=== PATIENT | female | born 1995 | race Caucasian/White ===

== ENCOUNTER 2018-03-23 18:42 | Emergency (ER) | payer OTHER ==
[~2018-03-23] VITALS: Ht 170.2 cm; Wt 108.0 kg
[2018-03-23] MEDS ORDERED: MTF500T (18:57)
[2018-03-23] MEDS ORDERED: MAGN400C (18:57)
[2018-03-23] MEDS ORDERED: LACTATED RINGERS 1,000 ML IV ONE (19:14)
[2018-03-23] MEDS ORDERED: KETOROLAC 30 MG/ML VIAL IVP ONE (19:15)
[2018-03-23] MEDS ORDERED: NS IV 1000 ML 1,000 ML ONE (19:16)
[2018-03-23 19:20] LABS: BASOPHILS # (AUTO) 0.1 10^3/uL (0.0-0.1); BASOPHILS % (AUTO) 1 % (0-10); EOSINOPHILS # (AUTO) 0.5 10^3/uL (0.0-0.3); EOSINOPHILS % (AUTO) 3 % (0-10); HEMATOCRIT 42 % (35-52); HEMOGLOBIN 14.4 G/DL (11.5-16.0); LYMPHOCYTES % (AUTO) 26 % (12-44); MEAN CORPUSCULAR HEMOGLOBIN 27 PG (25-34); MEAN CORPUSCULAR HGB CONC 35 G/DL (32-36); MEAN CORPUSCULAR VOLUME 78 FL (80-99); MEAN PLATELET VOLUME 10.6 FL (7.4-10.4); MONOCYTES # (AUTO) 0.9 X 10^3 (0.0-1.0); MONOCYTES % (AUTO) 6 % (0-12); NEUTROPHILS # (AUTO) 10.3 X 10^3 (1.8-7.8); NEUTROPHILS % (AUTO) 65 % (42-75); PLATELET COUNT 320 10^3/uL (130-400); RED BLOOD COUNT 5.37 10^6/uL (4.35-5.85); RED CELL DISTRIBUTION WIDTH 13.8 % (10.0-14.5); WHITE BLOOD COUNT 15.9 10^3/uL (4.3-11.0)
[2018-03-23 19:23] LABS: BILIRUBIN,URINE NEGATIVE (NEGATIVE); CLARITY,URINE VERY CLOUDY; COLOR,URINE AMBER; GLUCOSE, URINE (UA) NEGATIVE (NEGATIVE); KETONES,URINE NEGATIVE (NEGATIVE); LEUKOCYTE ESTERASE ,URINE 2+ (NEGATIVE); NITRITE,URINE NEGATIVE (NEGATIVE); PH,URINE 5 (5-9); PROTEIN,URINE 3+ (NEGATIVE); UROBILINOGEN,URINE NORMAL (NORMAL)
[2018-03-23 19:24] LABS: HCG,QUALITATIVE URINE NEGATIVE (NEGATIVE)
--- NOTE | 2018-03-23 19:26 | ED Abdominal Pain ---
General Chief Complaint: Abdominal/GI Problems Stated Complaint: LOWER ABD PAIN Nursing Triage Note: patient c/o R sided abdomen pain starting today with nausea. Sepsis Screen: No Definite Risk Source of Information: Patient Exam Limitations: No Limitations History of Present Illness Date Seen by Provider: Mar 23, 2018 Time Seen by Provider: 19:14 Initial Comments The patient resents to the ER by private conveyance with a chief complaint that for couple days now she's had progressively worsening pain in her right side. She says the pain presented similar to when she had a kidney stone several months ago. When she got this which she had. She also had a history of a few months after her kidney stone a bad pyelonephritis which presented similar to this. Pains on her right side and her right upper quadrant and right lower quadrant abdomen but the ride over was very bumpy and very painful for her and her mother is concerned she might have appendicitis since all of her siblings about appendicitis. Patient says she's felt some chills like a fever but never measured a fever. She took ibuprofen approximately an hour and a half prior to arrival 600 mg. She is about a week away from her. But she has Nahomi IUD. She takes metformin for prediabetes and PCO S. She's having some nausea but no vomiting yet. She's had no diarrhea or constipation. She has no pain when she urinates nor hematuria. No discharge. Allergies and Home Medications Allergies Coded Allergies: No Known Drug Allergies (Unverified , 03/23/18) Patient Home Medication List Home Medication List Reviewed: Yes Review of Systems Constitutional: chills; No diaphoresis, No fever; malaise EENTM: No Blurred Vision, No Double Vision Respiratory: Denies Cough, Denies Shortness of Air Cardiovascular: Denies Chest Pain, Denies Lightheadedness Gastrointestinal: Abdomen Distended, Abdominal Pain; Denies Constipated, Denies Diarrhea; Nausea; Denies Poor Fluid Intake, Denies Vomiting Genitourinary: Denies Burning, Denies Discharge Musculoskeletal: back pain (r cva); No joint pain Skin: No pruritus, No rash Psychiatric/Neurological: Denies Headache, Denies Numbness Past Iycpzxa-Agucej-Qjlhsv Hx Patient Social History Alcohol Use: Occasionally Uses Recreational Drug Use: No Smoking Status: Never a Smoker Recent Foreign Travel: No Contact w/Someone Who Travel: No Recent Infectious Disease Expo: No Recent Hopitalizations: No Past Medical History Surgeries: No Respiratory: No Cardiac: No Female Reproductive Disorders: Polycystic Ovarian Dis Genitourinary: Yes Kidney Stones, UTI-Chronic Gastrointestinal: No Musculoskeletal: No Endocrine: Yes Diabetes, Non-Insulin dep HEENT: No Cancer: No Psychosocial: No Blood Disorders: No Physical Exam Vital Signs Vital Signs - First Documented 03/23/18 18:52 Temp 98.2 Pulse 94 Resp 18 B/P (MAP) 144/106 (119) Pulse Ox 98 Capillary Refill : Less Than 3 Seconds General Appearance: WD/WN, mild distress HEENT: PERRL/EOMI, pharynx normal Respiratory: chest non-tender, lungs clear, normal breath sounds, no respiratory distress, no accessory muscle use Cardiovascular: normal peripheral pulses, regular rate, rhythm, no edema Peripheral Pulses: 2+ Radial Pulses (R), 2+ Radial Pulses (L) Gastrointestinal: normal bowel sounds, no organomegaly, guarding, rebound, tenderness (right upper quadrant and right lower quadrant with McBurney's point tenderness but negative for Olguin sign.), other (positive for Rovsing sign but not psoas sign. Discomfort in her abdomen on jumping up.) Extremities: normal range of motion, normal inspection, no pedal edema, no calf tenderness, normal capillary refill Back: normal inspection, CVA tenderness (R); No CVA tenderness (L) Neurologic/Psychiatric: alert, oriented x 3 Skin: normal color, warm/dry Progress/Results/Core Measures Results/Orders Lab Results Laboratory Tests Test 03/23/18 19:00 03/23/18 19:05 Range/Units Urine Color MARIE H Urine Clarity VERY CLOUDY H Urine pH 5 5-9 Urine Specific Mckenzie 1.025 H 1.016-1.022 Urine Protein 3+ H NEGATIVE Urine Glucose (UA) NEGATIVE NEGATIVE Urine Ketones NEGATIVE NEGATIVE Urine Nitrite NEGATIVE NEGATIVE Urine Bilirubin NEGATIVE NEGATIVE Urine Urobilinogen NORMAL NORMAL MG/DL Urine Leukocyte Esterase 2+ H NEGATIVE Urine RBC (Auto) 5+ H NEGATIVE Urine RBC TNTC H /HPF Urine WBC 10-25 H /HPF Urine Squamous Epithelial Cells 5-10 /HPF Urine Crystals NONE /LPF Urine Bacteria LARGE H /HPF Urine Casts NONE /LPF Urine Mucus NEGATIVE /LPF Urine Culture Indicated YES Urine Test NEGATIVE NEGATIVE Urine Opiates Screen NEGATIVE NEGATIVE Urine Oxycodone Screen NEGATIVE NEGATIVE Urine Methadone Screen NEGATIVE NEGATIVE Urine Propoxyphene Screen NEGATIVE NEGATIVE Urine Barbiturates Screen NEGATIVE NEGATIVE Ur Tricyclic Antidepressants Screen NEGATIVE NEGATIVE Urine Phencyclidine Screen NEGATIVE NEGATIVE Urine Amphetamines Screen NEGATIVE NEGATIVE Urine Methamphetamines Screen NEGATIVE NEGATIVE Urine Benzodiazepines Screen NEGATIVE NEGATIVE Urine Cocaine Screen NEGATIVE NEGATIVE Urine Cannabinoids Screen NEGATIVE NEGATIVE White Blood Count 15.9 H 4.3-11.0 10^3/uL Red Blood Count 5.37 4.35-5.85 10^6/uL Hemoglobin 14.4 11.5-16.0 G/DL Hematocrit 42 35-52 % Mean Corpuscular Volume 78 L 80-99 FL Mean Corpuscular Hemoglobin 27 25-34 PG Mean Corpuscular Hemoglobin Concent 35 32-36 G/DL Red Cell Distribution Width 13.8 10.0-14.5 % Platelet Count 320 130-400 10^3/uL Mean Platelet Volume 10.6 H 7.4-10.4 FL Neutrophils (%) (Auto) 65 42-75 % Lymphocytes (%) (Auto) 26 12-44 % Monocytes (%) (Auto) 6 0-12 % Eosinophils (%) (Auto) 3 0-10 % Basophils (%) (Auto) 1 0-10 % Neutrophils # (Auto) 10.3 H 1.8-7.8 X 10^3 Lymphocytes # (Auto) 4.0 1.0-4.0 X 10^3 Monocytes # (Auto) 0.9 0.0-1.0 X 10^3 Eosinophils # (Auto) 0.5 H 0.0-0.3 10^3/uL Basophils # (Auto) 0.1 0.0-0.1 10^3/uL Neutrophils % (Manual) 60 % Lymphocytes % (Manual) 37 % Monocytes % (Manual) 1 % Eosinophils % (Manual) 2 % Basophils % (Manual) 0 % Band Neutrophils 0 % Microcytosis SLIGHT Sodium Level 138 135-145 MMOL/L Potassium Level 4.0 3.6-5.0 MMOL/L Chloride Level 103 98-107 MMOL/L Carbon Dioxide Level 20 L 21-32 MMOL/L Anion Gap 15 H 5-14 MMOL/L Blood Urea Nitrogen 6 L 7-18 MG/DL Creatinine 0.73 0.60-1.30 MG/DL Estimat Glomerular Filtration Rate > 60 BUN/Creatinine Ratio 8 Glucose Level 116 H 70-105 MG/DL Calcium Level 9.7 8.5-10.1 MG/DL Total Bilirubin 0.3 0.1-1.0 MG/DL Aspartate Amino Transf (AST/SGOT) 22 5-34 U/L Alanine Aminotransferase (ALT/SGPT) 16 0-55 U/L Alkaline Phosphatase 84 40-136 U/L Total Protein 8.2 6.4-8.2 GM/DL Albumin 4.6 H 3.2-4.5 GM/DL My Orders Orders - BOBY COE Cbc With Automated Diff (03/23/18 19:14) Comprehensive Metabolic Panel (03/23/18 19:14) Drug Screen Stat (Urine) (03/23/18 19:14) Hcg,Qualitative Urine (03/23/18:14) Ua Culture If Indicated (03/23/18 19:14) Ketorolac Injection (Toradol Injection) (03/23/18 19:15) Saline Lock/Iv-Start (03/23/18 19:14) Lactated Ringers (Lr 1000 Ml Iv Solution (03/23/18 19:14) Ns Iv 1000 Ml (Sodium Chloride 0.9%) (03/23/18 19:16) Manual Differential (03/23/18 19:05) Ct Abdomen/Pelvis W Wo (03/23/18 19:23) Iohexol Injection (Omnipaque 350 Mg/Ml 1 (03/23/18 19:30) Sodium Chloride Flush (Catheter Flush Sy (03/23/18 19:30) Ns (Ivpb) (Sodium Chloride 0.9%) (03/23/18 19:30) Pharmacy Communication (Pharmacy Communi (03/23/18 19:25) Ondansetron Injection (Zofran Injectio (03/23/18 19:30) Urine Culture (03/23/18 19:00) Ceftriaxone Injection (Rocephin Injectio (03/23/18 20:00) Medications Given in ED Current Medications Medications Dose Ordered Sig/Stephie Route Start Time Stop Time Status Last Admin Dose Admin Ceftriaxone Sodium 1000 mg/ Sodium Chloride 50 ml @ 100 mls/hr ONCE ONCE IV 03/23/18 20:00 03/23/18 20:29 DC 03/23/18 20:27 100 MLS/HR Iohexol 100 ml ONCE ONCE IV 03/23/18 19:30 03/23/18 19:31 DC 03/23/18 20:17 100 ML Ketorolac Tromethamine 10 mg ONCE ONCE IVP 03/23/18 19:15 03/23/18 19:16 DC 03/23/18 19:19 10 MG Ondansetron HCl 4 mg ONCE ONCE IVP 03/23/18 19:30 03/23/18 19:31 DC 03/23/18 20:26 4 MG Sodium Chloride 10 ml NEEDED PRN IV 03/23/18 19:30 03/23/18 20:18 10 ML Sodium Chloride 250 ml ONCE ONCE IV 03/23/18 19:30 03/23/18 19:31 DC 03/23/18 20:18 80 ML Sodium Chloride 1,000 ml @ [facility] ONCE .ROUTE 03/23/18 19:16 03/23/18 19:18 DC 03/23/18 19:18 999 MLS/HR Vital Signs/I&O 03/23/18 18:52 Temp 98.2 Pulse 94 Resp 18 B/P (MAP) 144/106 (119) Pulse Ox 98 Blood Pressure Mean: 119 Progress Progress Note : Time: 19:28 Progress Note White count of 16,000 concern for intra-abdominal infection such as appendicitis , cholecystitis, pyelonephritis or even possibly a kidney stone. We'll going get a CT scan without and with give her a liter fluids and obtain labs. She does not have septic vital signs at this time. Diagnostic Imaging Diagonstic Imaging: CT (with and without) Plain Films/CT/US/NM/MRI: abdomen, pelvis Comments VIA [facility]. [place], [place] NAME: JEWEL HAAS [facility] REC#: [id number] PT STATUS: REG ER : 1995 PHYSICIAN: BOBY COE MD ADMIT DATE: 03/23/18/ER Draft Date of Exam:03/23/18 CT ABDOMEN/PELVIS W WO PROCEDURE: CT abdomen and pelvis with and without contrast. TECHNIQUE: Precontrast acquisitions were acquired through the abdomen and pelvis. Multiple contiguous axial images were obtained through the abdomen and pelvis after the administration of intravenous contrast. INDICATION: Right abdominal pain and nausea. FINDINGS: There is mild low-density throughout the liver indicating steatosis. No focal hepatic, splenic or pancreatic abnormality is identified. Gallbladder and adrenal glands are also unremarkable. The left kidney has a normal appearance. There is mild right hydronephrosis with an approximately 0.3 cm calculus in the proximal right ureter. No free fluid is seen in the abdomen or pelvis. There is no evidence of pathologically enlarged adenopathy. Intrauterine device is noted to be in good position. In addition, there is an approximately 3 cm cystic structure in the left adnexal region which is likely ovarian in nature. IMPRESSION: At least partially obstructing 0.3 cm right proximal ureteric stone with mild right hydronephrosis. A 3 cm left ovarian cyst. Clinical correlation would be useful. Followup ultrasonography may be of value, if indicated. Dictated on workstation # [id number] Dict: 03/23/182027 Trans: 03/23/182033 [facility] [id number] Interpreted by: YAJAIRA GONGORA MD Electronically signed by: Reviewed: Reviewed by Me Departure Impression Primary Impression: Ureteral calculus, right Additional Impression: UTI (urinary tract infection) Qualified Codes: N30.01 - Acute cystitis with hematuria Disposition: HOME, SELF-CARE Condition: Improved Departure-Patient Inst. Decision time for Depature: 21:01 Referrals: NO,LOCAL PHYSICIAN (PCP) Primary Care Physician JENNIFER LOREDO MD Patient Instructions: Kidney Stones (DC) Add. Discharge Instructions: You have a 3 mm stone in your right ureter as well as a bladder infection. If you start having fevers beyond 2-3 days, nausea and vomiting is not controlled with your medicines or worsening pain you can't control with your medicines then you should return to your doctor or nearest ER. If you have pain you can use 800 mg of ibuprofen every 8 hours in addition to one to 2 tablets of the oxycodone every 6 hours. Heating pads or also useful. Drink lots of fluids. Caffeine is okay. Until the stone passes take one tablet of Flomax every night. If you have nausea take one tablet of the Zofran, ondansetron every 6 hours as needed. Every time he urinated please strain your urine to see if you catch the stone. Tomorrow morning please call Dr. Loredo, urologist at his clinic and request an appointment for your history of multiple kidney stones and pyelonephritis. 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 All discharge instructions reviewed with patient and/or family. Voiced understanding. Scripts Tamsulosin HCl (Flomax) 0.4 Mg Cap 0.4 MG PO HS, #7 CAP 0 Refills Prov: BOBY COE 03/23/18 Oxycodone HCl/Acetaminophen (Oxycodone-Acetaminophen 5-325) 1 Each Tablet 1-2 EACH PO Q6H PRN for PAIN, #16 TAB 0 Refills Prov: BOBY COE 03/23/18 Ondansetron (Ondansetron Odt) 4 Mg Tab.rapdis 4 MG PO Q6H PRN for NAUSEA/VOMITING, #10 TAB 0 Refills Prov: BOBY COE 03/23/18 Cephalexin (Cephalexin) 500 Mg Tablet 500 MG PO BID for 10 Days, #20 TAB 0 Refills Prov: BOBY COE 03/23/18 Work/School Note: Work Release Form Date Seen in the Emergency Department: Mar 23, 2018 Return to Work: Mar 26, 2018 Restrictions: No Restrictions Copy Copies To 1: JENNIFER LOREDO MD, TITUS J Mar 23, 2018 19:26
[2018-03-23] MEDS ORDERED: IOHEXOL 350 MG/ML 100 ML (OMNIPAQUE 350) VIAL IV ONE (19:30)
[2018-03-23] MEDS ORDERED: ONDANSETRON 4 MG/2 ML (SDV) Z0FRAN IVP ONE (19:30)
[2018-03-23] MEDS ORDERED: NS 250 ML (IVPB) BAG IV ONE (19:30)
[2018-03-23] MEDS ORDERED: CATHETER FLUSH 10 ML SYR IV PRN (19:30)
[2018-03-23 19:31] LABS: BACTERIA,URINE LARGE /HPF; RBC,URINE TNTC /HPF
[2018-03-23 19:33] LABS: AMPHETAMINE SCREEN, URINE NEGATIVE (NEGATIVE); BARBITURATE SCREEN URINE NEGATIVE (NEGATIVE); BENZODIAZEPINES SCREEN URINE NEGATIVE (NEGATIVE); CANNABINOID SCREEN, URINE NEGATIVE (NEGATIVE); COCAINE SCREEN URINE NEGATIVE (NEGATIVE); METHADONE STAT NEGATIVE (NEGATIVE); METHAMPHETAMINE SCREEN URINE S NEGATIVE (NEGATIVE); OPIATE SCREEN URINE NEGATIVE (NEGATIVE); OXYCODONE STAT NEGATIVE (NEGATIVE); PROPOXYPHENE STAT NEGATIVE (NEGATIVE); TRICYCLIC ANTIDEPRESSANTS SCRE NEGATIVE (NEGATIVE)
[2018-03-23 19:38] LABS: BAND NEUTROPHILS 0 %; BASOPHILS % (MANUAL) 0 %; EOSINOPHILS % (MANUAL) 2 %; LYMPHOCYTES % (MANUAL) 37 %; MICROCYTOSIS SLIGHT; MONOCYTES % (MANUAL) 1 %; NEUTROPHILS % (MANUAL) 60 %
[2018-03-23 19:39] LABS: ALANINE AMINOTRANSFERASE 16 U/L (0-55); ALBUMIN 4.6 GM/DL (3.2-4.5); ALKALINE PHOSPHATASE 84 U/L (40-136); BILIRUBIN,TOTAL 0.3 MG/DL (0.1-1.0); BUN/CREATININE RATIO 8; CALCIUM 9.7 MG/DL (8.5-10.1); CARBON DIOXIDE 20 MMOL/L (21-32); CHLORIDE 103 MMOL/L (98-107); CREATININE SERUM 0.73 MG/DL (0.60-1.30); GFR ESTIMATED > 60; GLUCOSE 116 MG/DL (70-105); SODIUM 138 MMOL/L (135-145); TOTAL PROTEIN 8.2 GM/DL (6.4-8.2)
[2018-03-23] MEDS ORDERED: cefTRIAXone INJECTION 1,000 MG in NS (IVPB) 50 ML IV ONE (20:00)
--- NOTE | 2018-03-23 20:35 | Diagnostic Imaging Report ---
PROCEDURE: CT abdomen and pelvis with and without contrast. TECHNIQUE: Precontrast acquisitions were acquired through the abdomen and pelvis. Multiple contiguous axial images were obtained through the abdomen and pelvis after the administration of intravenous contrast. INDICATION: Right abdominal pain and nausea. FINDINGS: There is mild low-density throughout the liver indicating steatosis. No focal hepatic, splenic or pancreatic abnormality is identified. Gallbladder and adrenal glands are also unremarkable. The left kidney has a normal appearance. There is mild right hydronephrosis with an approximately 0.3 cm calculus in the proximal right ureter. No free fluid is seen in the abdomen or pelvis. There is no evidence of pathologically enlarged adenopathy. Intrauterine device is noted to be in good position. In addition, there is an approximately 3 cm cystic structure in the left adnexal region which is likely ovarian in nature. IMPRESSION: At least partially obstructing 0.3 cm right proximal ureteric stone with mild right hydronephrosis. A 3 cm left ovarian cyst. Clinical correlation would be useful. Followup ultrasonography may be of value, if indicated. Dictated by: Dictated on workstation # [id number]
[2018-03-23] MEDS ORDERED: CEPH500T PO (21:09)
[2018-03-23] MEDS ORDERED: OXYC-471 PO (21:09)
[2018-03-23] MEDS ORDERED: TAMS0.4C98 PO (21:09)
[2018-03-23] MEDS ORDERED: ONDA4TAB11 PO (21:09)
[2018-03-23 21:14] VITALS: BP 148/92
== END 2018-03-23 21:14 | disposition home or self-care (01) ==
LOC: ER 18:45
DX: N20.1 Calculus of ureter (principal); N39.0 Urinary tract infection, site not specified; E11.9 Type 2 diabetes mellitus without complications; Z87.442 Personal history of urinary calculi; Z87.448 Personal history of other diseases of urinary system
CPT/HCPCS: 36415; 74178; 80053; 80306; 81000; 84703; 85007; 85027; 87077; 87088; 87186; 96361; 96365; 96375